=== PATIENT | male | born 1995 | race Two or more races ===

== ENCOUNTER 2024-12-09 09:07 | Emergency (ER) | payer OTHER, SELFPAY ==
[2024-12-09 09:23] VITALS: BP 135/72; PULSE 62; RESP 16; TEMP 37.1; O2SAT 96; BMI 28.5
--- NOTE | 2024-12-09 09:37 | XR_ITS ---
Examination: Testicular sonography complete Technique: Grayscale sonographic images testes, assessment arterial inflow venous outflow Doppler spectral analysis carful analysis. Date and time: December 09, 2024 0943 hrs. Indications: Right testicular swelling beginning one year ago. Findings: Right testis 4.2 cm epididymis 24 mm. Arterial flow testicle. No testicular mass. Mild hydrocele. Left testis 3.9 cm epididymis 2.9 cm Arterial flow to the testicle. No testicular mass. Mild hydrocele Impression: Bilateral epididymitis
--- NOTE | 2024-12-09 09:37 | PD.EDRME ---
Rapid Medical Screening Exam E Arrival date/time: 12/09/24 09:07 This is a 29-year-old male that comes in with complaints of right testicle swelling. Patient states that his right testicle has been swollen for a year. Patient reports that he was told he does not have a hernia but he is convinced he has a hernia. Patient had surgery but does not understand what kind of surgery he had previously. He reports that it was a inguinal hernia surgery and then he says that his testicle did not drop and they had to bring it back down. Patient states that he has been seen and was told there is nothing wrong with him but he is convinced he has a hernia. Patient states that right after his surgery he was not supposed to lift anything more than 5 to 10 pounds and according to him he was left alone and was taking a shower with a big blanket and it weighed a lot. Patient states that he thinks he had a hernia after that. Patient denies alcohol drug use. Patient states he went to [facility] when he was initially examined. I have greeted and performed a focused initial assessment of this patient. Initial appropriate labs ordered at this time. A comprehensive ED assessment and evaluation of the patient and analysis of all test and completion of medical decision making process will be conducted by additional ED provider. Chief Complaint: Urogenital-Male Time Seen by Provider: 12/09/24 09:13 Vital signs: Vital Signs Temperature 98.8 F 12/09/24 09:23 Pulse Rate 62 12/09/24 09:23 Respiratory Rate 16 12/09/24 09:23 Blood Pressure 135/72 H 12/09/24 09:23 Pulse Oximetry (%) 96 12/09/24 09:23 Oxygen Delivery Method Room Air 12/09/24 09:23
--- NOTE | 2024-12-09 10:13 | EDNOTE_ITS ---
<Statement entered by Charissa Herring MD - 12/25/24 06:32> I, Charissa Herring MD, have reviewed the history, exam, and assessment of the patient. I have evaluated the patient independently and agree with the plan of care documented by [ ]. All diagnostic studies were reviewed and discussed. I confirm the diagnosis as documented by the Resident. I was present during the Medical Decision Making for this patient. The patient's plan of care was created between myself and the Resident and consistent with our discussion of the patient's case. ED General RME/HPI General Chief complaint: Urogenital-Male Stated complaint: Right testicle pain/swelling unknown for how long Time Seen by Provider: 12/09/24 09:13 Arrival date/time: 12/09/24 09:07 RME / HPI RME / HPI narrative: 12/09/24 09:07 This is a 29-year-old male that comes in with complaints of right testicle swelling. Patient states that his right testicle has been swollen for a year. Patient reports that he was told he does not have a hernia but he is convinced he has a hernia. Patient had surgery but does not understand what kind of surgery he had previously. He reports that it was a inguinal hernia surgery and then he says that his testicle did not drop and they had to bring it back down. Patient states that he has been seen and was told there is nothing wrong with him but he is convinced he has a hernia. Patient states that right after his surgery he was not supposed to lift anything more than 5 to 10 pounds and according to him he was left alone and was taking a shower with a big blanket and it weighed a lot. Patient states that he thinks he had a hernia after that. Patient denies alcohol drug use. Patient states he went to [facility] when he was initially examined. I have greeted and performed a focused initial assessment of this patient. Initial appropriate labs ordered at this time. A comprehensive ED assessment and evaluation of the patient and analysis of all test and completion of medical decision making process will be conducted by additional ED provider. 29-year-old male with past medical history of inguinal hernia comes into the ED with chief complaint of his hernia coming back. Patient states that he has noticed that his hernia has come back and that his right testicle is painful. He mentioned that he went back to the original surgeon who did the surgery, but that the surgeon told him that he did not have a hernia again and did not require repair at this time. Patient insisted that he does have a hernia and that is why he came in to the ER to get it resolved today as he was told by another physician to come and get it repaired. Patient also states that he has been taking ibuprofen, but that he stopped taking it because it was bad for his body. Otherwise patient denies any chest pain, shortness of breath, burning sensation with urination, constipation, or changes in mentation. Denies any smoking, drugs, alcohol Related Data Allergies Allergy/AdvReac Type Severity Reaction Status Date / Time No Known Drug Allergies Allergy Verified 12/09/24 09:14 Review of Systems Review of Systems Systems Reviewed: All systems reviewed, normal except as documented Past Medical History Past Medical History Comments PMH COMMENT: PMH: None Surgical Hx: Right inguinal hernia repair Social Hx: Denies any drugs, alcohol, smoking ED Exam Narrative Physical exam: Physical exam done with mamadou Pitts RN. Gen: A&O X 3, NAD HEENT: NCAT, EOMI, Pupils reactive ANTON[place], not icteric. External ears normal. No rhinorrhea. Moist mucous membranes. Neck: Supple, full range of motion, no observable masses, No meningeal sign. Lungs: No Respiratory distress, clear bilateral. CV: RRR, no murmurs. Abdomen: Soft, nondistended, No rebound tenderness. MSK: No joint swelling, no redness, peripheral pulses presents, lumbar with no edema. Skin: No rashes, petechiae, lesions. : Surgical scar in right groin area, bilateral testicles descended, no cross masses appreciated, mild pain on the right testicle with palpation, no mass protrusion upon coughing. Neuro: No focal neurological deficits appreciated, sensory and motor intact. Psych: Cooperative, appropriate mood and effect. Course Quality Measures none Orders Category Date Time Status US testicular Stat Exams 12/09/24 09:37 Completed Chlamydia/GC/TV - PCR Stat Lab 12/09/24 10:40 Completed Drug Screen,Urine Stat Lab 12/09/24 10:40 Completed Urinalysis, C/S if Indicated Stat Lab 12/09/24 10:40 Completed Vital Signs Vital signs: Vital Signs Temperature 98.8 F 12/09/24 09:23 Pulse Rate 62 12/09/24 09:23 Respiratory Rate 16 12/09/24 09:23 Blood Pressure 135/72 H 12/09/24 09:23 Pulse Oximetry (%) 96 12/09/24 09:23 Oxygen Delivery Method Room Air 12/09/24 09:23 Discharge Plan Plan Patient Disposition: HOME (Self Care) Prescriptions/Referrals Referrals: No Primary/Family,Physician [Primary Care Provider] - In 1 week Problem List Clinical Impression: Groin pain Patient/Caregiver Discharge Instructions Other Activity Instructions:: Follow-up with primary care physician within 2 to 3 days Follow-up with your primary care physician for workup of microscopic hematuria Would recommend outpatient follow-up with general surgeon for evaluation of possible inguinal hernia Come back to the ED if new symptoms persist or worsen. Education Materials: Understanding the Pain Response, ED Pain, Acute, Uncertain Cause Print Language: Portuguese Stand Alone Forms: [employer] Award Info., Patient Portal Info Letter MDM Narrative MDM hospital course: Patient was seen evaluated upon arrival by myself. Diagnostic labs and imaging were ordered Patient's ultrasound came back and did not show any mass and showed proper flow to the testicles, but did show some mild hydronephrosis on the right and some mild epididymitis. Discussed this with the patient and he stated that he had not been sexually active for the past 6 years, ordered STD panel. Before discharge paperwork could be given to patient patient decided to leave as he had to leave and did not have a ride if his ride left today. Reached out to patient via phone call to provide his instructions to follow-up with primary care physician due to RBC being present in urine and to follow-up with primary care physician to get a second opinion from his general surgeon. Case disclosed with Attending Dr. Nevaeh Alfaro PGY2 Disclaimer: Even though this this note was dictated by speech recognition and even though it was carefully revised there may still be minor errors in aeronautical inspector due to voice recognition software.
[2024-12-09 10:53] LABS: Collection Type, Urine Voided; Squamous Epithelial Cell,Urine 0 /hpf (0-5)
[2024-12-09 11:02] LABS: Bilirubin,Urine Negative (Negative); Blood,Urine Negative (Negative); Clarity,Urine Clear (Clear/Hazy); Color,Urine Yellow (Lt Yel-Yel); Culture Indicated,Urine Not Indicated; Glucose, Urine Negative (Negative); Ketones,Urine 1+ (Negative); Leukocyte Esterase,Urine Negative (Negative); Nitrite,Urine Negative (Negative); PH,Urine 7.0 (5.0-7.0); Protein,Urine 1+ (Neg - Trace); RBC,Urine 7 /hpf (0-3); Specific Gravity,Urine 1.035 (1.001-1.035); Urobilinogen,Urine Negative mg/dL (0.0-1.0); WBC,Urine 1 /hpf (0-5)
[2024-12-09 11:12] LABS: Amphetamine/Methamp Scrn,U Negative (Negative); Barbiturate Screen,Urine Negative (Negative); Benzodiazepines Screen,Urine Negative (Negative); Benzoylecgonine Screen, Ur Negative (Negative); Fentanyl Screen,Urine Negative (Negative); Opiate Screen,Urine Negative (Negative); THC Screen,Urine Negative (Negative)
[2024-12-09 12:04] VITALS: BP 143/76; PULSE 68; RESP 16; TEMP 36.4; O2SAT 100
--- NOTE | 2024-12-09 14:05 | PC.NURSE ---
patient eloped at this time i informed patient importance of staying and waiting for results patient states i have to leave my ride is here they already called me 5 times i cant wait here patient then proceded to walk out.
[2024-12-09 14:08] LABS: Chlamydia trachomatis PCR Negative (Not Detect); Neisseria Gonorrhoeae DNA PCR Negative (Not Detect); Trichomonas Negative (Negative)
== END 2024-12-09 14:05 | disposition home or self-care (01) ==
PROVIDERS: Nurse Practitioner Family; Emergency Provider Emergency Medicine
DX: N45.1 Epididymitis (principal)
CPT/HCPCS: 76870; 80307; 81001; 87491; 87591; 87661; 99283